=== PATIENT | male | born 1965 | race Hispanic/Latino ===

== ENCOUNTER 2024-10-10 14:11 | Emergency (ER) | payer BC ==
[~2024-10-10] VITALS: Ht 185.4 cm; Wt 98.9 kg
[2024-10-10] MEDS ORDERED: DIPHTH,PERTUSS(ACELL),TET VAC 0.5 ML SYRINGE IM ONE (14:30)
[2024-10-10 15:30] VITALS: BP 141/82
== END 2024-10-10 15:38 | disposition home or self-care (01) ==
LOC: ED 14:11
DX: S01.412A Laceration without foreign body of left cheek and temporomandibular area, initial encounter (principal); W27.8XXA Contact with other nonpowered hand tool, initial encounter
CPT/HCPCS: 90715